=== PATIENT | male | born 1970 | race Two or more races ===

== ENCOUNTER → 2019-01-09 | Day surgery (SDC) | payer OTHER ==
[~2019-01-09] MED LIST: ATORVASTATIN CA40 MG PO; JANUVIA100 MG PO; LIDOCAINE HCL 2% LOCAL INJ 5 ML SDV VIAL INJ ONE; LISINOPRIL2.5 MG PO; METFORMIN HCL500 MG PO; OMEPRAZOLE40 MG PO; PROPOFOL IV EMULSION 10 MG/ML 20 ML VIAL ONE
--- OUTSIDE RECORDS SUMMARY | 2019-01-09 08:31 | XMS REPORT ---
Author Author Admin, [place] Organization [facility] Address [address] [address] Phone Allergies, Adverse Reactions, Alerts Allergy Name Reaction Description Start Date Severity Status Provider No Known Allergies Orquidea Mccain MA Conditions or Problems Problem Name Problem Code Onset Date Status Entry Date Provider Comment Standard Description Annotate BMI 21.0-21.9 Active Curtis Snell MD Body Mass Index between 19-24, adult Low back pain 724.2 Active Curtis Snell MD Lumbago Annual exam V72.31 Active Reina Vazquez MD Routine gynecological examination Hyperlipidemia 272.4 Active Curtis Snell MD Other and unspecified hyperlipidemia Constipation 564.00 Active Shirley Diaz.Livier. Constipation, unspecified Diabetes mellitus, type II 250.00 Active Shirley Diaz.Livier. Diabetes mellitus without mention of complication, type II or unspecified type, not stated as uncontrolled Will order baseline labs, patient denied any systemic complications Hypertension 401.9 Active Shirley Diaz.O. Unspecified essential hypertension Thigh pain, right 729.5 Active Shirley Montoya D.O. Pain in limb Medication List Medication Instructions Start Date Stop Date Generic Name NDC Status Provider Patient Instruction CYCLOBENZAPRINE HCL 5 MG ORAL TABLET take 1 tablet at bedtime CYCLOBENZAPRINE HCL 26572140916 Active Tunde Mullen MD (res) Active JANUVIA 100 MG ORAL TABLET take 1 tab daily SITAGLIPTIN PHOSPHATE 45570620667 Active Tunde Mullen MD (res) Active ADVOCATE INSULIN SYRINGE 31G X /16" 1 ML Use with insulin as directed INSULIN SYRINGE-NEEDLE U-100 72765650927 Active Tunde Mullen MD (res) Active LEVEMIR 100 UNIT/ML SUBCUTANEOUS SOLUTION take 55 units nightly INSULIN DETEMIR 63439260257 Active Tunde Mullen MD (res) Active OMEPRAZOLE 20 MG ORAL CAPSULE DELAYED RELEASE 1 by mouth every day OMEPRAZOLE 36557189228 Active Tunde Mullen MD (res) Active LIPITOR 40 MG ORAL TABLET 1 by mouth every pm ATORVASTATIN CALCIUM 77200147604 Active Tunde Mullen MD (res) Active LISINOPRIL 5 MG ORAL TABLET 1 by mouth every day LISINOPRIL 86914321469 Active Tunde Mullen MD (res) Active METFORMIN HCL 1000 MG ORAL TABLET 1 tab By Mouth Twice a Day for diabetes METFORMIN HCL 04672929916 Active Rosi Bowers [employer]ATELL[employer]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 DOCUSATE SODIUM 100 MG ORAL TABLET 1 tab By Mouth twice daily for constipation DOCUSATE SODIUM 100 MG ORAL TABLET 5550363 DOCUSATE SODIUM Inactive GLIMEPIRIDE 4 MG ORAL TABLET one tablet by mouth daily GLIMEPIRIDE 4 MG ORAL TABLET 353937 GLIMEPIRIDE Inactive NAPROXEN 500 MG ORAL TABLET 1 by mouth twice a day as needed for pain and inflammation NAPROXEN 500 MG ORAL TABLET 356112 NAPROXEN Inactive DOCUSATE SODIUM 100 MG ORAL TABLET 1 tab By Mouth twice daily for constipation DOCUSATE SODIUM 34836109521 No Longer Active Curtis Snell MD Active GLIMEPIRIDE 4 MG ORAL TABLET one tablet by mouth daily GLIMEPIRIDE 20161621996 No Longer Active Vannessa Rg MD Active NAPROXEN 500 MG ORAL TABLET 1 by mouth twice a day as needed for pain and inflammation NAPROXEN 45940852519 No Longer Active Curtis Snell MD Active Vital Signs Date Name Value Unit Range Description blood pressure, diastolic 81 mm[Hg] BP quintana blood pressure, systolic 122 mm[Hg] BP sys height E&M 65 [in_us] Bdy height pulse rate E&M 72 /min Heart rate respiratory rate E&M 16 /min Resp rate temperature E&M 97.9 [degF] Body temperature weight E&M 129 [lb_av] Weight Measured blood pressure, diastolic 87 mm[Hg] BP quintana blood pressure, systolic 132 mm[Hg] BP sys height E&M 65 [in_us] Bdy height pulse rate E&M 72 /min Heart rate respiratory rate E&M 17 /min Resp rate temperature E&M 97.3 [degF] Body temperature weight E&M 125.80 [lb_av] Weight Measured blood pressure, diastolic 81 mm[Hg] BP quintana blood pressure, systolic 126 mm[Hg] BP sys height E&M 65 [in_us] Bdy height pulse rate E&M 79 /min Heart rate respiratory rate E&M 17 /min Resp rate temperature E&M 98.0 [degF] Body temperature weight E&M 132 [lb_av] Weight Measured blood pressure, diastolic 80 mm[Hg] BP quintana blood pressure, systolic 102 mm[Hg] BP sys height E&M 65 [in_us] Bdy height pulse rate E&M 88 /min Heart rate respiratory rate E&M 16 /min Resp rate temperature E&M 98.2 [degF] Body temperature weight E&M 129 [lb_av] Weight Measured blood pressure, diastolic 89 mm[Hg] BP quintana blood pressure, systolic 124 mm[Hg] BP sys height E&M 65 [in_us] Bdy height pulse rate E&M 64 /min Heart rate respiratory rate E&M 19 /min Resp rate temperature E&M 98.5 [degF] Body temperature weight E&M 131.60 [lb_av] Weight Measured blood pressure, diastolic 77 mm[Hg] BP quintana blood pressure, systolic 115 mm[Hg] BP sys height E&M 65 [in_us] Bdy height pulse rate E&M 77 /min Heart rate respiratory rate E&M 20 /min Resp rate temperature E&M 98.1 [degF] Body temperature weight E&M 130.40 [lb_av] Weight Measured Diagnostic Results Date Name Value Unit Range Description Lab Report: CBC With Differential/Platelet, Comp. Metabolic Panel (14), ... - Hematology basophils as percent of blood leukocytes 0 % Lab Report: Comp. Metabolic Panel (14), Lipid Panel, Hemoglobin A1c - Chemistry calcium, serum 9.8 mg/dL 8.7-10.2 Lab Report: CBC With Differential/Platelet, Comp. Metabolic Panel (14), ... - Hematology lymphocyte count, blood, automated 2.6 X10E3/UL 10*3/mm3 0.7-3.1 Lab Report: Comp. Metabolic Panel (14), Lipid Panel, Hemoglobin A1c - Chemistry urea nitrogen, blood 11 mg/dL 6-24 Lab Report: Microalb/Creat Ratio, [facility] Ur - Urinalysis microalbumin/total urine volume <3.0 ug/mL mg/L Not Estab. Lab Report: CBC With Differential/Platelet, Comp. Metabolic Panel (14), ... - Hematology monocyte count, blood, automated 1.4 X10E3/UL 10*3/uL 0.1-0.9 Lab Report: CBC With Differential/Platelet, Comp. Metabolic Panel (14), ... - Chemistry immature granulocytes, percentage of total cells, blood 0 % Lab Report: Comp. Metabolic Panel (14), Lipid Panel, Hemoglobin A1c - Chemistry urea nitrogen/creatinine ratio, serum 16 9-20 Lab Report: Comp. Metabolic Panel (14), Lipid Panel, Hemoglobin A1c - Genetics/fertility eGFR if 132 mL/min/1.73m2 >59 Lab Report: Comp. Metabolic Panel (14), Lipid Panel, Hemoglobin A1c - Chemistry creatinine, serum 0.67 mg/dL 0.76-1.27 Lab Report: CBC With Differential/Platelet, Comp. Metabolic Panel (14), ... - Hematology mean corpuscular volume, RBC 91 fL 79-97 Lab Report: Comp. Metabolic Panel (14), Lipid Panel, Hemoglobin A1c - Chemistry chloride, serum 96 mmol/L 96-106 Lab Report: CBC With Differential/Platelet, Comp. Metabolic Panel (14), ... - Hematology lymphocytes as percent of blood leukocytes 16 % Lab Report: Comp. Metabolic Panel (14), Lipid Panel, Hemoglobin A1c - Chemistry triglyceride, serum, fasting 150 mg/dL 0-149 Lab Report: CBC With Differential/Platelet, Comp. Metabolic Panel (14), ... - Hematology erythrocyte (RBC) count 5.68 X10E6/UL 10*6/mm3 4.14-5.80 Lab Report: Comp. Metabolic Panel (14), Lipid Panel, Hemoglobin A1c - Chemistry Estimated Glomerular Filtration Rate (calc) 114 mL/min/1.73m2 >59 Lab Report: CBC With Differential/Platelet, Comp. Metabolic Panel (14), ... - Hematology platelet count 352 X10E3/UL 10*3/mm3 [phone]/03/21 red blood cell distribution width 13.9 % 12.3-15.4 Lab Report: Comp. Metabolic Panel (14), Lipid Panel, Hemoglobin A1c - Chemistry carbon dioxide, venous blood 23 mmol/L 18-29 protein, total, serum 7.4 g/dL 6.0-8.5 sodium, serum 138 mmol/L 777-462 7108/01/06 HDL cholesterol, serum 50 mg/dL >39 Lab Report: Hemoglobin A1c - Chemistry hemoglobin A1C, blood, as % of total hemoglobin 11.1 % 4.8-5.6 Lab Report: CBC With Differential/Platelet, Comp. Metabolic Panel (14), ... - Hematology eosinophils as percent of blood leukocytes 3 % Lab Report: Comp. Metabolic Panel (14), Lipid Panel, Hemoglobin A1c - Chemistry albumin/globulin ratio, serum 1.6 1.1-2.5 Lab Report: CBC With Differential/Platelet, Comp. Metabolic Panel (14), ... - Chemistry Absolute Neutrophils 11.1 X10E3/UL 10*3/uL 1.4-7.0 Lab Report: Comp. Metabolic Panel (14), Lipid Panel, Hemoglobin A1c - Chemistry alkaline phosphatase, serum 84 U/L 39-117 Lab Report: CBC With Differential/Platelet, Comp. Metabolic Panel (14), ... - Hematology basophil count, absolute 0.0 x10E3/uL 0.0-0.2 Lab Report: Microalb/Creat Ratio, [facility] Ur - Chemistry microalbumin/creatinine ratio, urine <4.7 mg/g creat ug/mg 0.0-30.0 Lab Report: Comp. Metabolic Panel (14), Lipid Panel, Hemoglobin A1c - Chemistry alanine aminotransferase (SGPT), serum 33 U/L 0-44 Lab Report: CBC With Differential/Platelet, Comp. Metabolic Panel (14), ... - Hematology Eosinophil Absolute Count 0.5 X10E3/UL 10*3/uL 0.0-0.4 Lab Report: Comp. Metabolic Panel (14), Lipid Panel, Hemoglobin A1c - Chemistry LDL cholesterol, serum 105 mg/dL 0-99 Lab Report: CBC With Differential/Platelet, Comp. Metabolic Panel (14), ... - Hematology monocytes as percent of blood leukocytes 9 % mean corpuscular hemoglobin, RBC 30.1 pg 26.6-33.0 Lab Report: Comp. Metabolic Panel (14), Lipid Panel, Hemoglobin A1c - Chemistry cholesterol, serum 185 mg/dL 100-199 Lab Report: CBC With Differential/Platelet, Comp. Metabolic Panel (14), ... - Hematology mean corpuscular hemoglobin concentration, RBC 33.1 G/DL % 31.5-35.7 Lab Report: Microalb/Creat Ratio, [facility] - Chemistry creatinine, random, urine 64.0 mg/dL Not Estab. Lab Report: Comp. Metabolic Panel (14), Lipid Panel, Hemoglobin A1c - Chemistry bilirubin, serum, total 0.3 mg/dL 0.0-1.2 Lab Report: CBC With Differential/Platelet, Comp. Metabolic Panel (14), ... - Hematology hemoglobin, blood 17.1 g/dL 12.6-17.7 neutrophils as percent of blood leukocytes 72 % leukocyte count, blood 15.6 X10E3/UL 10*3/mm3 3.4-10.8 hematocrit, blood 51.7 % 37.5-51.0 Lab Report: Comp. Metabolic Panel (14), Lipid Panel, Hemoglobin A1c - Chemistry potassium, serum 4.7 mmol/L 3.5-5.2 Office Visit: Adult Followup Rm1 - Chemistry blood glucose, random 291 mg/dL Lab Report: Comp. Metabolic Panel (14), Lipid Panel, Hemoglobin A1c - Chemistry globulin, serum 2.9 1.5-4.5 aspartate aminotransferase (SGOT), serum 19 U/L 0-40 albumin, serum 4.5 g/dL 3.5-5.5 very low density lipoproteins 30 mg/dL 5-40 Encounters Date Encounter Provider Code Facility 12:39:14 CDT Est Patient Exp Problem - 67567 Tunde Mullen MD (res) CPT-26591 [facility] 14:32:27 CDT Est Patient Exp Problem - 49175 Curtis Snell MD CPT-64871 [facility] 16:52:39 CDT Est Patient Exp Problem - 26778 Emy Martell MD (res) CPT-32047 [facility] 18:46:43 CDT Est Patient Exp Problem - 87009 Shirley Montoya D.O. CPT-95583 [facility] 23:47:06 MEDICAL PATHOLOGIST Est Patient Exp Problem - 31134 Vannessa Rg MD CPT-41535 [facility] 13:08:58 MEDICAL PATHOLOGIST Est Patient Exp Problem - 36212 Curtis Snell MD [facility]-57429 [facility] 09:32:28 MEDICAL PATHOLOGIST New Patient Detailed - 54880 Curtis Snell MD CPT-01809 [facility] 13:48:12 CDT Ofc Vst, Est Level III Curtis Snell MD CPT-27024 [facility] 10:52:46 CDT New Patient Detailed - 53178 Shirley Montoya D.O. CPT-75316 [facility] Procedures Code Procedure Name Date Entry Date Standard Description CPT-69085 Est Patient Well Exam (40 - 64 Yrs) - 35714 16:39:22 CDT
[2019-01-09 12:20] VITALS: BP 110/75
== END | disposition home or self-care (01) ==
LOC: OR 08:28
PROVIDERS: ATTEND Internal Medicine
DX: K29.50 Unspecified chronic gastritis without bleeding (principal); D12.0 Benign neoplasm of cecum; K62.1 Rectal polyp; K44.9 Diaphragmatic hernia without obstruction or gangrene; K57.30 Diverticulosis of large intestine without perforation or abscess without bleeding; K59.00 Constipation, unspecified; K64.0 First degree hemorrhoids; R63.4 Abnormal weight loss; J44.9 Chronic obstructive pulmonary disease, unspecified; R03.0 Elevated blood-pressure reading, without diagnosis of hypertension; E11.9 Type 2 diabetes mellitus without complications; F17.210 Nicotine dependence, cigarettes, uncomplicated; Z01.810 Encounter for preprocedural cardiovascular examination; Z79.84 Long term (current) use of oral hypoglycemic drugs
CPT/HCPCS: 36415; 43239; 45380; 45385; 82948; 93005; J2001; J2704